=== PATIENT | male | born 1965 | race Caucasian/White ===

== ENCOUNTER → 2016-06-26 | Outpatient (CLI) | payer OTHER ==
[~2016-06-26] MED LIST: CATAPRES 0.1MG0.1 MG PO; CETIRIZINE HCL10 MG PO; CITALOPRAM HBR40 MG PO; CRESTOR20 MG PO; ECOTRIN81 MG PO; FENOFIBRATE145 MG PO; FISH OIL 1,0001 EACH PO; GLUCOPHAGE500 MG PO; HUMALOG100 UNIT/1 SQ; KLONOPIN TAB 00.5 MG PO; LANTUS100 UNIT/1 SQ; LEVEMIR100 UNIT/1 SQ; LISINOPRIL20 MG PO; LISINOPRIL40 MG PO; METFORMIN HCL500 MG PO; METOPROLOL TART25 MG PO; NAPROSYN500 MG PO; NEURONTIN 400400 MG PO; NORVASC 5 MG TAB5 MG PO; OMEPRAZOLE20 M1 PO; PROTONIX40 MG PO; QUETIAPINE FUMA50 MG PO; ROPINIROLE HCL1 MG PO; SUBOXONE 8 MG-1 EACH SL; TRAZODONE HCL50 MG PO; VOLTAREN100 GM TP; ZANTAC300 MG PO; ZOCOR40 MG PO
== END ==
LOC: RAD 15:28
DX: M54.2 Cervicalgia (principal)
CPT/HCPCS: 72050; 72072; 72110

== ENCOUNTER 2016-07-04 11:12 | Inpatient (IN) | payer OTHER ==
[~2016-07-04] VITALS: Ht 167.6 cm; Wt 108.0 kg
[~2016-07-04 11:12] MED LIST changes: -CATAPRES 0.1MG0.1 MG PO; -CETIRIZINE HCL10 MG PO; -CITALOPRAM HBR40 MG PO; -CRESTOR20 MG PO; -ECOTRIN81 MG PO; -LEVEMIR100 UNIT/1 SQ; -LISINOPRIL40 MG PO; -METFORMIN HCL500 MG PO; -METOPROLOL TART25 MG PO; -PROTONIX40 MG PO; -QUETIAPINE FUMA50 MG PO; -ROPINIROLE HCL1 MG PO; -TRAZODONE HCL50 MG PO; -VOLTAREN100 GM TP
[2016-07-04 11:34] LABS: HEMOGLOBIN 15.1 gm/dl (14.0-17.5); RED BLOOD COUNT 4.97 M/UL (4.20-5.50); WHITE BLOOD COUNT 25.9 K/UL (4.5-11.0)
[2016-07-04] MEDS ORDERED: CATAPRES 0.1MG0.1 MG PO (16:15)
[2016-07-04] MEDS ORDERED: CITALOPRAM HBR40 MG PO (16:16)
[2016-07-04] MEDS ORDERED: METFORMIN HCL500 MG PO (16:18)
[2016-07-04] MEDS ORDERED: NORVASC 5 MG TAB5 MG PO (16:19)
[2016-07-04] MEDS ORDERED: VOLTAREN100 GM TP (16:20)
[2016-07-04] MEDS ORDERED: ROPINIROLE HCL1 MG PO (16:20)
[2016-07-04 19:50] LABS: BUN/CREATININE RATIO 33 (0-10)
[2016-07-05 01:09] LABS: BUN/CREATININE RATIO 29 (0-10)
[2016-07-05 04:56] LABS: HEMOGLOBIN 15.7 gm/dl (14.0-17.5); RED BLOOD COUNT 5.45 M/UL (4.20-5.50); WHITE BLOOD COUNT 19.7 K/UL (4.5-11.0)
[2016-07-05 07:13] LABS: BUN/CREATININE RATIO 29 (0-10)
[2016-07-05 11:25] LABS: BUN/CREATININE RATIO 31 (0-10)
[2016-07-05 15:26] LABS: BUN/CREATININE RATIO 29 (0-10)
[2016-07-05 19:52] LABS: BUN/CREATININE RATIO 26 (0-10)
[2016-07-05 23:18] LABS: BUN/CREATININE RATIO 28 (0-10)
[2016-07-06 05:06] LABS: BUN/CREATININE RATIO 23 (0-10)
[2016-07-06 05:23] LABS: HEMOGLOBIN 12.9 gm/dl (14.0-17.5); RED BLOOD COUNT 4.47 M/UL (4.20-5.50); WHITE BLOOD COUNT 13.9 K/UL (4.5-11.0)
[2016-07-06 08:17] LABS: BUN/CREATININE RATIO 22 (0-10)
[2016-07-06 12:22] LABS: BUN/CREATININE RATIO 18 (0-10)
[2016-07-07 05:38] LABS: BUN/CREATININE RATIO 18 (0-10)
[2016-07-07] MEDS ORDERED: ECOTRIN81 MG PO (18:37)
[2016-07-07] MEDS ORDERED: METOPROLOL TART25 MG PO (18:38)
[2016-07-07] MEDS ORDERED: CRESTOR20 MG PO (18:40)
[2016-07-07] MEDS ORDERED: PROTONIX40 MG PO (18:40)
[2016-10-31] MEDS ORDERED: LISINOPRIL40 MG PO (07:37)
[2016-10-31] MEDS ORDERED: LISINOPRIL20 MG PO (07:38)
[2016-10-31] MEDS ORDERED: SUBOXONE 8 MG-1 EACH SL ×2 (07:39→07:48)
[2016-10-31] MEDS ORDERED: TRAZODONE HCL50 MG PO (07:40)
[2016-10-31] MEDS ORDERED: ROPINIROLE HCL1 MG PO (07:41)
[2016-10-31] MEDS ORDERED: NORVASC 5 MG TAB5 MG PO (07:42)
[2016-10-31] MEDS ORDERED: METFORMIN HCL500 MG PO (07:49)
[2016-10-31] MEDS ORDERED: QUETIAPINE FUMA50 MG PO (07:50)
[2016-10-31] MEDS ORDERED: CETIRIZINE HCL10 MG PO (07:50)
[2016-11-03] MEDS ORDERED: LEVEMIR100 UNIT/1 SQ (11:01)
== END 2016-07-07 18:20 | disposition home or self-care (01) | DRG 280 ==
LOC: ER1 11:12 → ZEROF 13:36 → CCU 16:23 → PROG CARE 07-06 18:05
PROVIDERS: Emergency Medicine; Physician Assistant; ADMIT Hospitalist
DX: I21.4 Non-ST elevation (NSTEMI) myocardial infarction (principal); E13.10 Other specified diabetes mellitus with ketoacidosis without coma; N17.9 Acute kidney failure, unspecified; E87.1 Hypo-osmolality and hyponatremia; R65.10 Systemic inflammatory response syndrome (SIRS) of non-infectious origin without acute organ dysfunction; E87.6 Hypokalemia; E78.1 Pure hyperglyceridemia; I10 Essential (primary) hypertension; E78.5 Hyperlipidemia, unspecified; R00.0 Tachycardia, unspecified; R11.2 Nausea with vomiting, unspecified; Z72.0 Tobacco use; E66.9 Obesity, unspecified; Z68.35 Body mass index [BMI] 35.0-35.9, adult; F41.9 Anxiety disorder, unspecified; Z86.14 Personal history of Methicillin resistant Staphylococcus aureus infection; Z79.84 Long term (current) use of oral hypoglycemic drugs; Z79.4 Long term (current) use of insulin; Z79.891 Long term (current) use of opiate analgesic; Z79.899 Other long term (current) drug therapy; Z98.890 Other specified postprocedural states; Z82.49 Family history of ischemic heart disease and other diseases of the circulatory system; Z83.3 Family history of diabetes mellitus
CPT/HCPCS: ECHO; 36415; 36600; 71010; 78452; 80048; 80053; 80061; 81001; 82009; 82150; 82550; 82553; 82803; 82962; 83036; 83605; 83690; 83874; 83880; 84132; 84484; 85025; 85027; 87040; 93005; 93017; 93306; 96361; 96374; 99291; A9502; C9113; J0583; J1644; J1815; J2785; J7030; J7050